=== PATIENT | female | born 1955 | race Caucasian/White ===

== ENCOUNTER 2020-07-15 13:07 | Outpatient (RCR) | payer MEDICARE, SELFPAY | END 2020-11-08 16:24 | disposition home or self-care (01) | LOC: HO.WCC 13:07 | PROVIDERS: Visit Provider Surgery | DX: L89.893 Pressure ulcer of other site, stage 3 (principal); L89.624 Pressure ulcer of left heel, stage 4; L89.512 Pressure ulcer of right ankle, stage 2; L89.152 Pressure ulcer of sacral region, stage 2; L89.42 Pressure ulcer of contiguous site of back, buttock and hip, stage 2; G35 Multiple sclerosis; N31.9 Neuromuscular dysfunction of bladder, unspecified; K59.2 Neurogenic bowel, not elsewhere classified | CPT/HCPCS: 11042; 11043; 11045; 11046; 15271; 99215; Q4187 ==

== ENCOUNTER 2021-03-30 12:48 | Outpatient (RCR) | payer MEDICARE, SELFPAY | END 2021-06-14 13:32 | disposition home or self-care (01) | LOC: HO.WCC 12:48 | PROVIDERS: PCP Physician Assistant Medical; Visit Provider Surgery | DX: T87.81 Dehiscence of amputation stump (principal); L89.513 Pressure ulcer of right ankle, stage 3; Z89.512 Acquired absence of left leg below knee; G35 Multiple sclerosis; G62.9 Polyneuropathy, unspecified; I25.10 Atherosclerotic heart disease of native coronary artery without angina pectoris; Z99.3 Dependence on wheelchair | CPT/HCPCS: 11042; 99212 ==